=== PATIENT | female | born 1965 | race Caucasian/White ===

== ENCOUNTER 2025-09-30 11:21 | Day surgery (SDC) | payer MEDICARE, MEDICAID, SELFPAY ==
[2025-09-30] VITALS (21 sets, daily range): BP systolic 70–160; BP diastolic 27–101; BMI 25.6
[2025-09-30 12:12] LABS: Hematocrit 41.2 % (37.0-47.0); Hemoglobin 14.6 g/dL (12.0-16.0); Mean Corp Hgb Conc. 35.4 g/dL (33.0-37.0); Mean Corpuscular Volume 92.4 fL (81.0-99.0); Platelet Count 144 10^3/uL (130-400); Red Cell Dist. Width 13.3 % (11.5-14.5)
[2025-09-30 12:33] LABS: Blood Urea Nitrogen 17 mg/dl (7-17); Calcium 9.0 mg/dl (8.4-10.2); Carbon Dioxide 29 mmol/L (22-30); Chloride 103 mmol/L (98-107); Estimated Creatinine Clearance 46 ml/min; Glucose 86 mg/dl (70-99); Potassium 4.5 mmol/L (3.5-5.1); Sodium 135 mmol/L (135-145); eGFR > 60.00
--- NOTE | 2025-09-30 18:08 | ITS.CL.PACE ---
Source Inspector - Pacemaker Implant
Pacemaker Implant
Procedure Report:
Primary Care Doctor: Dr Sharee Hernandez
Primary Cinder Pit Crane Operator: Dr Jhon Mata
Procedure Date: 09/30/2025
Name of procedure:
1. Placement of a dual-chamber pacemaker
2. Subclavian venography
History:
1. Patient is a very pleasant 60-year-old female with a past medical history significant for trisomy 21, recurrent syncope, sick sinus syndrome, symptomatic sinus bradycardia. Noted significant symptoms including fatigue, shortness of breath,
tiredness, sleepiness, and syncope.
2. Please refer to H&P for complete history.
Indication:
Sick sinus syndrome
Sinus bradycardia
Syncope
Methods:
After informed consent was obtained, the patient was brought to the EP laboratory in a postabsorptive, nonsedated state. Peripheral IV access was established. Prophylactic antibiotics were administered prior to incision. Continuous ECG, blood
pressure, and pulse oximetry were initiated. Cardioversion patch electrodes were placed on the patient's chest and back. A grounding patch was applied to the skin. Sedation was administered by anesthesia services. Following initiation of
anesthesia, patient became apneic and obstructed leading to worsening sinus bradycardia and asystole. Immediate medical therapy was provided with atropine and epinephrine along with transcutaneous pacing. Brief chest compressions were performed
however strong bounding pulse noted and compressions stopped. For airway protection, patient was intubated by anesthesia services. Patient remained stable throughout the remainder of the procedure. See anesthesia record/procedure for full details
In order to define the extrathoracic portion of the subclavian vein and exclude significant venous obstruction or anomalous anatomy, subclavian venography was performed prior to the procedure. Using the patient's left peripheral IV, contrast was
injected and images were recorded. The left subclavian vein and SVC were found to be widely patent.
The left chest was prepared and draped in a sterile fashion. A time-out was performed. Local anesthesia was injected in the subcutaneous tissue in the infraclavicular area. An incision was made medial to the deltopectoral groove. The subcutaneous
tissue was dissected the level of the prepectoral fascia. A subcutaneous pocket was created. Under fluoroscopic guidance and with the assistance of the images from the venogram, 2 separate venipunctures were made using micropuncture and modified
Seldinger technique. These were performed in the extrathoracic portion of the subclavian vein. Guidewires were passed and two peel-away sheaths were placed, and used to advance leads into the circulation.
Using fluoroscopic guidance, the leads were positioned. The RV lead was advanced to the RV/outflow tract. Ventricular ectopy was recorded. Images were taken in LEAL and GREEK views to ensure appropriate lead placement. The lead tip was subsequently
positioned on the apical septum. Adequate sensing and pacing parameters were found, and no diaphragmatic stimulation was seen with high-output pacing. The short sheath was split and the lead was tied in place.
Next, the right atrial lead was positioned in the right atrial appendage. Adequate sensing and pacing parameters were found, and no diaphragmatic stimulation was seen with high-output pacing. The short sheath was split and the lead was secured to
the fascia with Ethibond ties.
The pocket was flushed with antibiotic solution and hemostasis was assured. The generator was connected to the leads and placed inside the pocket. An antibiotic envelope was placed around the device. The device was sutured to the fascia. The
wound was closed with 3 running layers of absorbable suture, and steri-strips were applied. Dressing applied over steri-strips in standard fashion.
Following the procedure, the patient was extubated and taken to the PACU area in stable condition.
Lead parameters and device programming:
- RA Lead (Medtronic, Model 5076, # [id number]): Sensing 1.8 mV, Pacing threshold 0.75 V at 0.4 ms, Imp 532 ohm
- RV Lead (Medtronic, Model 5076, # [id number]): Sensing 16.9 mV, Pacing threshold 1.0 V at 0.4 ms, Imp 893 ohm
- Device: Medtronic, Model W1DR01 pacemaker (# [id number]), programmed [id number], mode switch on, lower rate 70, upper tracking rate 130 ppm
Conclusions:
1. Successful placement of a dual-chamber pacemaker
2. Subclavian venography
Recommendations:
1. Admit
2. Chest Xray tonight, [facility] in AM
3. IV antibiotics while the patient is admitted.
4. OK to resume home medications as indicated
5. Pressure dressing to be removed in AM, aquacell to remain until wound check
6. Follow-up will be arranged in the office in 7-10 days post-discharge
Curt Vargas DO, FACC, RS
Clinical Cardiac Body Shop Mechanic
cc: Dr Sharee Hernandez; Dr Jhon Mata
[2025-09-30 19:39] LABS: Glucose - Point of Care 92 mg/dl (70-99)
--- NOTE | 2025-09-30 20:00 | PTCARENOTE ---
Patient transferred over from PACU. Patient is alert to self, often repeats back to examiner what was just asked of her. She will follow commands. Pupils are equal and reactive. Patient has pacer in place, arm immobilizer and dressing intact.
Patient has rates in the 70s. Started on levo for blood pressures with MAP goal > 60. No edema noted, pulses are palpable. Abdomen is soft, obese, non-tender, bowel sounds are present. Bladder scanned for > 900 in bladder, straight cathed for 1,000,
light yellow urine. Skin is intact. IV sites are c/d/i.
[2025-09-30] MEDS: KEPPRA 750 MG PO (20:32)
[2025-09-30] MEDS: REFRESH CELLUVISC GEL 1 DROPS OPHTH (20:33)
[2025-09-30] MEDS: LEVOPHED 250 IV (20:33)
[2025-09-30] MEDS: NSS 1000 IV (20:43)
[2025-09-30 20:46] LABS: INR 0.91; PT 12.8 Sec (11.4-14.6)
[2025-09-30 20:47] LABS: APTT 33.7 Sec (23.4-35.0)
[2025-09-30 20:52] LABS: Hematocrit 39.8 % (37.0-47.0); Hemoglobin 13.4 g/dL (12.0-16.0); Mean Corp Hgb Conc. 33.7 g/dL (33.0-37.0); Mean Corpuscular Volume 97.1 fL (81.0-99.0); Platelet Count 136 10^3/uL (130-400); Red Cell Dist. Width 13.6 % (11.5-14.5)
[2025-09-30 21:32] LABS: Blood Urea Nitrogen 15 mg/dl (7-17); Calcium 8.0 mg/dl (8.4-10.2); Carbon Dioxide 24 mmol/L (22-30); Chloride 105 mmol/L (98-107); Estimated Creatinine Clearance 52 ml/min; Glucose 106 mg/dl (70-99); Magnesium 1.9 mg/dl (1.6-2.3); Potassium 4.0 mmol/L (3.5-5.1); Sodium 136 mmol/L (135-145); eGFR > 60.00
[2025-09-30] MEDS: ANCEF 5 IV (23:45)
[2025-09-30] MEDS: TYLENOL 650 MG PO (23:48)
[2025-10-01] VITALS (23 sets, daily range): BP systolic 77–126; BP diastolic 32–110; BMI 25.5
--- NOTE | 2025-10-01 00:11 | PTCARENOTE ---
Levo turned off due to adequate MAP. Patient complaining of mild pain in throat, Tylenol given per order. No other changes in assessment.
[2025-10-01 02:59] LABS: Hematocrit 37.9 % (37.0-47.0); Hemoglobin 13.0 g/dL (12.0-16.0); Mean Corp Hgb Conc. 34.3 g/dL (33.0-37.0); Mean Corpuscular Volume 97.7 fL (81.0-99.0); Platelet Count 153 10^3/uL (130-400); Red Cell Dist. Width 13.4 % (11.5-14.5)
[2025-10-01 03:38] LABS: Blood Urea Nitrogen 14 mg/dl (7-17); Calcium 7.8 mg/dl (8.4-10.2); Carbon Dioxide 28 mmol/L (22-30); Chloride 106 mmol/L (98-107); Estimated Creatinine Clearance 52 ml/min; Glucose 101 mg/dl (70-99); Magnesium 1.8 mg/dl (1.6-2.3); Potassium 4.3 mmol/L (3.5-5.1); Sodium 138 mmol/L (135-145); eGFR > 60.00
[2025-10-01] MEDS: SYNTHROID 50 MCG PO (06:02)
[2025-10-01] MEDS: PROTONIX 40 MG PO (07:54)
[2025-10-01] MEDS: METAMUCIL, KONSYL 1 PACKET PO (07:54)
[2025-10-01] MEDS: REFRESH CELLUVISC GEL 1 DROPS OPHTH (07:54)
[2025-10-01] MEDS: ANCEF 5 IV (07:55)
[2025-10-01] MEDS: KEPPRA 750 MG PO (07:55)
--- NOTE | 2025-10-01 09:02 | PTCARENOTE ---
assisted patient OOB to chair, handheld assist x1, will set up breakfast for patient.
--- NOTE | 2025-10-01 09:49 | W.PN.CARDCBS ---
Addendum entered and electronically signed by Jhon Rios MD 10/01/25 10:16:
Patient seen and examined
Agree with below note and assessment
Agree with below plan
Events of the last 24 hours noted. She had a period of apnea after sedation which was answered with intubation and otherwise relatively uneventful pacemaker implantation. She did have some esophageal air noted on postprocedure chest x-ray which
resolved this morning. I did personally review her chest x-rays from last evening and this morning including the films which demonstrate stable lead position and esophageal air resolving. There is no evidence of tracheal deviation or shifting in
the mediastinum. She feels well with a stable mean arterial pressure
Exam:
No evidence for crepitus in the neck and chest region
She is phonating appropriately
No evidence of stridor over the neck
Cor regular
She is atrially paced on telemetry
Her deltopectoral groove wound site on the left is stable without hematoma
She is awake alert and oriented at her baseline
She is nonfocal neurologically and at her baseline
She was off pressor support when examined
Primary Care Doctor: Dr Sharee Hernandez
Primary Senior Case Manager: Dr Jhon Mata
60-year-old female with a past medical history significant for trisomy 21, recurrent syncope, sick sinus syndrome, symptomatic sinus bradycardia. Noted significant symptoms including fatigue, shortness of breath, tiredness, sleepiness, and syncope.
Impression:
Symptomatic sinus bradycardia with syncope
SSS
cardiac arrest with induction of anesthesia
post DC PPM 09/30/25
Trisomy 21
GERD
Seizure d/o
Hypothyroidism
Plan:
She improved throughout the evening and is stable this morning
tele Apaced
CXR with no PTX but hypoinflated lungs and gaseous dilatation of esophagus, repeat CXR with resolved esophagus dilatation. I reviewed her morning chest x-ray personally
on RA appears comfortable
denies incisional pain
SBP at baseline this am 80-90, pressor support off for 8 hours
urinary retention post procedure, required st cath, voiding this am w/o difficultly
OOB
Activity restrictions reviewed with RN and caregivers
Incision check 1 week at [facility]
stable for d/c home to her caregivers
Original Note:
Today's Communication / Plan
-
post DC PPM, c/b cardiac arrest d/t hypotension/bradycardia with anesthesia induction
much improved today, oob voiding, BP at baseline off pressors, repeat CXR improved
stable for d/c home after lunch
Impression / Plan
-
Primary Care Doctor: Dr Sharee Hernandez
Primary Senior Case Manager: Dr Jhon Mata
60-year-old female with a past medical history significant for trisomy 21, recurrent syncope, sick sinus syndrome, symptomatic sinus bradycardia. Noted significant symptoms including fatigue, shortness of breath, tiredness, sleepiness, and syncope.
Impression:
Symptomatic sinus bradycardia with syncope
SSS
cardiac arrest with induction of anesthesia
post DC PPM 09/30/25
Trisomy 21
GERD
Seizure d/o
Hypothyroidism
Plan:
Pt has normally low BP, during induction of anesthesia she became apneic with airway obstruction and bradycardic with asystole
recovered with brief CPR and epi/atropine, required intubation for the procedure and Levophed for BP management, recovered in ICU
PPM site stable, pressure dressing removed
tele Apaced
CXR with no PTX but hypoinflated lungs and gaseous dilatation of esophagus, repeat CXR with resolved esophagus dilatation
on RA appears comfortable
denies incisional pain
SBP at baseline this am 80-90, pressor support off for 8 hours
urinary retention post procedure, required st cath, voiding this am w/o difficultly
OOB
Activity restrictions reviewed with RN and caregivers
Incision check 1 week at [facility]
stable for d/c home
Progress Note - Senior Case Manager
Subjective
Date of Service: October 01, 2025
denies cp, sob, incisional pain
Objective
Labs:
10/01/25 02:52
10/01/25 02:52
Labs
Hgb 13.0 g/dL (12.0-16.0) 10/01/25 02:52
Hct 37.9 % (37.0-47.0) 10/01/25 02:52
Plt Count 153 10^3/uL (130-400) 10/01/25 02:52
PT 12.8 Sec (11.4-14.6) 09/30/25 20:27
INR 0.91 09/30/25 20:27
APTT 33.7 Sec (23.4-35.0) 09/30/25 20:27
Sodium 138 mmol/L (135-145) 10/01/25 02:52
Potassium 4.3 mmol/L (3.5-5.1) 10/01/25 02:52
BUN 14 mg/dl (7-17) 10/01/25 02:52
Creatinine 0.8 mg/dL (0.6-1.0) 10/01/25 02:52
Glucose 101 mg/dl (70-99) H 10/01/25 02:52
Vital Signs and I&O:
Vital Signs
Temp Pulse Resp BP Pulse Ox
97.8 F 70 16 91/62 98
10/01/25 07:24 10/01/25 08:00 10/01/25 08:00 10/01/25 08:00 10/01/25 09:13
Vital Signs
Temp Pulse Resp BP Pulse Ox
97.8 F 70 16 91/62 98
10/01/25 07:24 10/01/25 08:00 10/01/25 08:00 10/01/25 08:00 10/01/25 09:13
Intake & Output
09/29/25 09/30/25 10/01/25 10/02/25
06:59 06:59 06:59 06:59
Intake Total 1460.0 / 1535.0 390 / 390
Output Total 1000 / 1000
Balance 460.0 / 535.0 390 / 390
Physical Exam
Physical Exam
NAD, AOx1
S1, S2, RRR
coarse t/o clears with cough, no wheeze
SNTND Bsx4
L CW site c/d/i no HT, pressure dressing removed
--- NOTE | 2025-10-01 11:59 | W.DS.TRANS ---
DC Summary - Card Cutter Helper
-
Discharge Instructions:
Discharge Diagnosis/Procedures Pacemaker implant
Diet Low Cholesterol
Driving Restrictions No driving for 1 week
Bathing Restrictions OK to Shower
Instructions:
Stand-Alone Forms: DC Inst - Implanted Device
Changes to Home Medications: No
Discharge Medications:
DC Medications w/original date entered in [employer]
carboxymethylcellulose sodium 0.5 % eye drops (Refresh Tears) 1 drp ophthalmic (eye) BID 09/30/25
clindamycin phosphate 1 % topical swab 1 applic topical DAILY 09/30/25
fluticasone furoate 50 mcg/actuation blister powder for inhalation 50 mcg inhalation DAILY 09/30/25
levetiracetam 750 mg tablet 750 mg PO BID 09/30/25
levothyroxine 50 mcg tablet 50 mcg PO DAILY 09/30/25
pantoprazole 40 mg tablet,delayed release 40 mg PO DAILY 09/30/25
polyethylene glycol 3350 17 gram oral powder packet 17 g PO DAILY 09/30/25
psyllium husk 0.4 gram capsule (Reguloid (psyllium husk)) 0.4 g PO DAILY 09/30/25
Home Medication Changes
Pending Results: No
--- NOTE | 2025-10-01 12:45 | CM ---
Patient medically cleared for discharge to home with no additional skilled services. Patient arranged for transport home.
== END 2025-10-01 12:15 | disposition home or self-care (01) ==
LOC: CATH 11:21
PROVIDERS: Nurse Practitioner Adult Health; Nurse Practitioner Primary Care; ATTENDING PHYSICIAN Internal Medicine Cardiovascular Disease; FAMILY PHYSICIAN Nurse Practitioner
DX: I49.5 Sick sinus syndrome (principal); Q90.9 Down syndrome, unspecified; K21.9 Gastro-esophageal reflux disease without esophagitis; G40.909 Epilepsy, unspecified, not intractable, without status epilepticus; E03.9 Hypothyroidism, unspecified; J98.8 Other specified respiratory disorders; R06.81 Apnea, not elsewhere classified; Z79.890 Hormone replacement therapy; R55 Syncope and collapse; I97.710 Intraoperative cardiac arrest during cardiac surgery; Y83.8 Other surgical procedures as the cause of abnormal reaction of the patient, or of later complication, without mention of misadventure at the time of the procedure
CPT/HCPCS: 33208; 92950; 71045; 80048; 82962; 83735; 85027; 85610; 85730; 93005; C1769; C1785; C1887; C1894; C1898; Q9967